=== PATIENT | male | born 1955 | race Caucasian/White ===

== ENCOUNTER 2019-08-09 11:52 | Emergency (ER) | payer MEDICARE, SELFPAY ==
[2019-08-09 11:59] VITALS: BP 194/108; PULSE 94; RESP 16; TEMP 36.6; O2SAT 95
--- NOTE | 2019-08-09 12:07 | XR_ITS ---
WS: [id number] XR chest 1V portable [id number] REASON FOR EXAM: ams FINDINGS: The heart and mediastinum were normal. This tortuous descending thoracic aorta. The lung davison are clear there is no pneumonia, pleural effusion, pulmonary edema, no mass effect. Small nodular densities in the right hilum are seen most likely lymph nodes. XR/XR chest 1V portable [id number] IMPRESSION: Lymphadenopathy in the right hilum. Negative chest for active pathology.
--- NOTE | 2019-08-09 12:07 | CT_ITS ---
WS: [id number] CT HEAD TECHNIQUE: Noncontrast CT of the head obtained from the skullbase to the vertex. CLINICAL INFORMATION: confusion COMPARISON: None. DLP: 1004.[address] scans at [facility] use at least one of these dose optimization techniques: automat ed exposure control; mA and/or kV adjustment per patient size (includes targeted exams where dose is matched to clinical indication); or iterative reconstruction. FINDINGS: No evidence of intracranial hemorrhage or mass effect. Ventricular system and basal cisterns are thakkar nt. Mild small vessel changes with mild parenchymal volume loss. Lobulated Vessel in the right MCA territory is suspicious for a 5 mm MCA trifurcation aneurysm. This can be followed up with CTA. No extra-axial fluid collections. No evidence of mass or mass effect. Normal price-white differentiati on. Mild mucosal thickening in the right frontoethmoidal recess and ethmoid air cells. Mastoid air cells are well aerated. Message left for Rishi Hernandez MD at 08/09/2019 1:[address]/CT head wo con* [id number] IMPRESSION: 1. No evidence of intracranial hemorrhage or mass effect. 2. Mild small vessel changes with mild parenchymal volume loss. 3. Suggestion of a tiny MCA trifurcation aneurysm measuring 5 mm. This can be followed up with CTA 4. Mild mucosal thickening in the paranasal sinuses. 5. No other significant findings.
--- NOTE | 2019-08-09 12:08 | ECG_ITS ---
Measurements Intervals [place] Rate: 88 P: -11 NC: 119 QRS: -42 QRSD: 140 T: 13 QT: 395 QTc: 480 SINUS RHYTHM WITH SHORT NC INTERVAL LEFT AXIS DEVIATION [QRS AXIS < -30] RIGHT BUNDLE BRANCH BLOCK [120+ ms QRS DURATION, UPRIGHT V1, 40+ ms S IN I/ I/aVL/V4/V5/V6] Compared to ECG 06/27/2015 12:28:15 Short NC interval now present Right bundle-branch block now present Electronically Signed On 08-10-2019 12:41:46 CDT by Leigh Alvarez [email or web address]
--- NOTE | 2019-08-09 12:09 | ED_ITS ---
HPI - General Adult General: Chief complaint: General Medical Stated complaint: NOT FEELING RIGHT Time Seen by Provider: 08/09/19 12:01 Source: patient Mode of arrival: ambulatory Limitations: no limitations History of Present Illness: HPI narrative: 64-year-old male states roughly 15 to 30 minutes ago he had short-term memory loss. He states he forgot what he done the day before and what he is doing currently. Patient here now is able answer my questions and knows his name and he is orientated to time and place. Patient does have problems recalling events from earlier today. He has no weakness and no speech abnormality. He is able to walk without any problems. Onset (ago): minute(s) Associated symptoms: Reports confusion; Deny chest pain, dyspnea, headache(s), nausea, rash or vomiting Review of Systems Const: Denies: fever, chills, body aches or change in appetite Eyes: Denies: blurry vision or eye discomfort ENMT: Denies: throat pain or dental pain Card: Denies: chest pain Resp: Denies: shortness of breath GI: Denies: abdominal pain, nausea, vomiting or diarrhea : Denies: painful urination Musc: Denies: neck pain or back pain Skin/Breast: Denies: rash Neuro: Reports: confusion; Denies: headache Psych: Denies: depression [place]/Lymph: Denies: easy bruising All/Imm: Denies: hives PFSH ED PFSH: Social History Smoking and tobacco status: former smoker Physical Exam Const: COMMON NORMALS: no apparent distress, oriented x3, healthy appearing and alert ORIENTATION/CONSCIOUSNESS: Yes oriented to person, Yes oriented to place and Yes oriented to time HENMT: COMMON NORMALS: normocephalic and head/scalp atraumatic HEAD & SCALP: normocephalic and atraumatic Eye: COMMON NORMALS: PERRL and EOMs intact bilaterally PUPIL: Yes PERRL Neck/C-Spine: COMMON NORMALS: full ROM and supple Chest: COMMONS NORMALS: inspection of chest normal and palpation of chest normal Resp: COMMON NORMALS: normal respiratory effort, no retractions, no use of accessory muscles and clear to auscultation bilaterally AUSCULTATION: clear to auscultation bilaterally Cardio: COMMON NORMALS: regular rate, regular rhythm and no murmurs RATE: regular rate RHYTHM: regular rhythm GI: COMMON NORMALS: normal to inspection, nondistended, normoactive bowel sounds, soft to palpation, non-tender and no masses PALPATION: Yes soft Extremity: COMMON NORMALS: normal to inspection and full ROM Neuro: COMMON NORMALS: oriented x3, moves all extremities and no focal motor deficits SENSORIUM/ORIENTATION: Yes alert, Yes oriented to person, Yes oriented to place and Yes oriented to time CRANIAL NERVES: Yes CN normal except as noted SPEECH: speech normal GAIT: Yes normal gait MOTOR EXAM: strength 5/5 throughout and no pronator drift Psych: COMMON NORMALS: mental status grossly normal, thought process normal and cooperative THOUGHT PROCESS: normal thought process Skin: COMMON NORMALS: no rashes or lesions noted and no wounds GENERAL SKIN EXAM: no rashes or lesions noted Course Vital Signs: Vital signs: Vital Signs Temperature 98.4 F 08/09/19 15:48 Pulse Rate 87 08/09/19 15:48 Respiratory Rate 18 08/09/19 15:48 Blood Pressure 176/102 08/09/19 15:48 Pulse Oximetry 96 08/09/19 15:48 MDM - General Adult MDM Narrative: Medical decision making narrative: Patient presents here with acute memory loss that since resolved. Patient is now starting remember what he had done earlier today. He does have a small aneurysm that I did inform about and will have him follow-up with neurosurgery. He has no signs of acute stroke here and his neuro exam is completely normal with an NIH of 0. I did offer admission since he has some memory loss but he refuses and states he feels improved. I informed he has any worsening symptoms he is to return immediately. Patient understands and agrees to this plan. He does have high blood pressure here and has not followed up with a PCP so we will start him on blood pressure meds and he needs to get a primary care doctor as well. Lab Data: Labs: Lab Results 08/09/19 08/09/19 08/09/19 Range/Units 12:11 12:11 12:18 WBC 5.3 (4.0-10.0) 10^3/ uL RBC 4.87 (4.1-5.3) 10^6/u L Hgb 14.9 (11.7-16.6) g/dL Hct 45.6 (42.0-52.0) % MCV 93.6 (80-94) fL MCH 30.6 (28.0-34.0) pg MCHC 32.7 (30.0-36.0) g/dL RDW 14.1 (12.1-15.1) % Plt Count 177 (130-400) 10^3/c mm MPV 10.5 H (7.4-10.4) fL Neut % (Auto) 71.5 % Lymph % (Auto) 21.7 % [place] % (Auto) 5.3 % Eos % (Auto) 0.9 % Baso % (Auto) 0.2 % Neut # (Auto) 3.8 (1.8-7.7) 10^3/u L Lymph # (Auto) 1.2 (0.8-4.8) 10^3/u L [place] # (Auto) 0.3 (0.2-0.9) 10^3/u L Eos # (Auto) 0.1 (0.0-0.8) 10^3/u L Baso # (Auto) 0.0 (0.0-0.1) 10^3/u L Nucleated RBC % (a uto) 0 % Nucleated RBCs # 0.0 /100WBC Sodium (136-145) mmol/L Potassium (3.5-5.1) mmol/L Chloride (98-107) mmol/L Carbon Dioxide (22-29) mmol/L Anion Gap (5-19) BUN (8-23) mg/dL Creatinine (0.7-1.2) mg/dL GFR Calculation (90-130) mL/min Glucose (65-115) mg/dL Calculated Osmolal ity (285-295) mOsm/k g Calcium (8.5-10.5) mg/dL Total Bilirubin (0.15-1.2) mg/dL AST (0-40) U/L ALT (0-41) U/L Alkaline Phosphata se (40-130) IU/L Total Protein (6.6-8.7) g/dL Albumin (3.5-5.2) g/dL Globulin (1.3-4.6) g/dL Urine Color Straw (Yellow) Urine Appearance Clear (CLEAR) Urine pH 6 (5-7) Ur Specific Gravit y 1.010 (1.005-1.030) Urine Protein Neg (Negative) Urine Glucose (UA) Norm (Normal) Urine Ketones Negative (Negative) Urine Blood Neg (Negative) Urine Nitrate Negative (Negative) Urine Bilirubin Neg (NEGATIVE) Urine Urobilinogen Norm (Negative) mg/dL Ur Leukocyte Shana ase Negative (Negative) Urine Opiates Scre en Negative (Negative) ng/mL Ur Barbiturates Sc reen Negative (Negative) ng/mL Ur Phencyclidine S crn Negative (Negative) ng/mL Ur Amphetamines Sc reen Negative (Negative) ng/mL U Benzodiazepines Scrn Negative (Negative) ng/mL Urine Cocaine Scre en Negative (Negative) ng/mL U Marijuana (THC) Screen Negative (Negative) ng/mL Ethyl Alcohol (0-10) mg/dL 08/08/ Range/Units 12:18 WBC (4.0-10.0) 10^3/ uL RBC (4.1-5.3) 10^6/u L Hgb (11.7-16.6) g/dL Hct (42.0-52.0) % MCV (80-94) fL MCH (28.0-34.0) pg MCHC (30.0-36.0) g/dL RDW (12.1-15.1) % Plt Count (130-400) 10^3/c mm MPV (7.4-10.4) fL Neut % (Auto) % Lymph % (Auto) % [place] % (Auto) % Eos % (Auto) % Baso % (Auto) % Neut # (Auto) (1.8-7.7) 10^3/u L Lymph # (Auto) (0.8-4.8) 10^3/u L [place] # (Auto) (0.2-0.9) 10^3/u L Eos # (Auto) (0.0-0.8) 10^3/u L Baso # (Auto) (0.0-0.1) 10^3/u L Nucleated RBC % (a uto) % Nucleated RBCs # /100WBC Sodium 142 (136-145) mmol/L Potassium 3.9 (3.5-5.1) mmol/L Chloride 106 (98-107) mmol/L Carbon Dioxide 24 (22-29) mmol/L Anion Gap 15.9 (5-19) BUN 17 (8-23) mg/dL Creatinine 0.8 (0.7-1.2) mg/dL GFR Calculation 96.7 (90-130) mL/min Glucose 117 H (65-115) mg/dL Calculated Osmolal ity 291 (285-295) mOsm/k g Calcium 9.6 (8.5-10.5) mg/dL Total Bilirubin 0.7 (0.15-1.2) mg/dL AST 16 (0-40) U/L ALT 13 (0-41) U/L Alkaline Phosphata se 71 (40-130) IU/L Total Protein 7.1 (6.6-8.7) g/dL Albumin 4.6 (3.5-5.2) g/dL Globulin 2.5 (1.3-4.6) g/dL Urine Color (Yellow) Urine Appearance (CLEAR) Urine pH (5-7) Ur Specific Gravit y (1.005-1.030) Urine Protein (Negative) Urine Glucose (UA) (Normal) Urine Ketones (Negative) Urine Blood (Negative) Urine Nitrate (Negative) Urine Bilirubin (NEGATIVE) Urine Urobilinogen (Negative) mg/dL Ur Leukocyte Shana ase (Negative) Urine Opiates Scre en (Negative) ng/mL Ur Barbiturates Sc reen (Negative) ng/mL Ur Phencyclidine S crn (Negative) ng/mL Ur Amphetamines Sc reen (Negative) ng/mL U Benzodiazepines Scrn (Negative) ng/mL Urine Cocaine Scre en (Negative) ng/mL U Marijuana (THC) Screen (Negative) ng/mL Ethyl Alcohol < 10 (0-10) mg/dL Imaging Data^: cta head: Radiologist's impression: [place] [address] CT Scan Report Signed Patient: Mikel Vides Unit #: [id number] : 1955 Age/Sex: 64 / M ADM Date: 08/09/19 Loc: ER Room/Bed: Attending Dr: Ordering Provider/Ordering MD: Rishi Hernandez MD Date of Service: 08/09/19 Procedure(s): CT angio headneck* [id number] Accession Number(s): [id number] Report Number: [id number] WS: [id number] CTA HEAD AND NECK TECHNIQUE: Contrast enhanced CTA of the head and neck with coronal and sagittal reformatted images and maximum intensity projection (MIP) images. NASCET criteria utilized. CLINICAL INFORMATION: confusion COMPARISON: CT head earlier today DLP: 2496.[address] scans at [facility] use at least one of these dose optimization techniques: automated exposure control; mA and/or kV adjustment per patient size (includes targeted exams where dose is matched to clinical indication); or iterative reconstruction. FINDINGS: INTRACRANIAL CTA Lobular vessel seen on the recent CT represents a MCA trifurcation aneurysm measuring 4.4 mm. Distal vessels remain patent. Distal vertebral arteries are patent. Basilar artery is patent. Normal vascularity to the DIS[employer]IT[employer] SERVICES OFFICER territory bilaterally. Both ICAs are patent at the skull base. Normal vascularity to the TOYA and MCA territories bilaterally. No evidence of high-grade proximal stenosis. RIGHT: Right common carotid artery is patent. Mild calcified atheromatous disease right carotid bulb extending into the ICA. No significant right ICA stenosis. ICA is patent to the skull base. Tortuous right cervical ICA. LEFT: Left common carotid artery is patent. No significant left ICA stenosis. Left ICA is patent to the skull base. Tortuous left cervical ICA. Multinodular thyroid goiter. Enlarged thyroid. Recommend correlation with thyroid function studies. Lung apices are well aerated. Normal posterior nasopharynx. No evidence of supraglottic or glottic mass. Moderate spondylitic changes cervical spine. Notified Rishi Hernandez MD at 08/09/2019 2:[address]/CT angio headneck* [id number] IMPRESSION: 1. No significant ICA stenosis bilaterally. 2. 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 Distal vessels remain patent. 3. Otherwise unremarkable intracranial CTA. 4. Both cervical ICAs are tortuous in the neck. 5. Heterogeneous enlarged thyroid consistent with goiter. CT Head: Radiologist's impression: [facility] [address] [place] [address] CT Scan Report Signed Patient: Mikel Vides Unit #: [id number] : 1955 Age/Sex: 64 / M ADM Date: 08/09/19 Loc: ER Room/Bed: Attending Dr: Ordering Provider/Ordering MD: Rishi Hernandez MD Date of Service: 08/09/19 Procedure(s): CT head wo con* [id number] Accession Number(s): [id number] Report Number: [id number] WS: [id number] CT HEAD TECHNIQUE: Noncontrast CT of the head obtained from the skullbase to the vertex. CLINICAL INFORMATION: confusion COMPARISON: None. DLP: 1004.[address] scans at [facility] use at least one of these dose optimization techniques: automated exposure control; mA and/or kV adjustment per patient size (includes targeted exams where dose is matched to clinical indication); or iterative reconstruction. FINDINGS: No evidence of intracranial hemorrhage or mass effect. Ventricular system and basal cisterns are patent. Mild small vessel changes with mild parenchymal volume loss. Lobulated Vessel in the right MCA territory is suspicious for a 5 mm MCA trifurcation aneurysm. This can be followed up with CTA. No extra-axial fluid collections. No evidence of mass or mass effect. Normal price-white differentiation. Mild mucosal thickening in the right frontoethmoidal recess and ethmoid air cells. Mastoid air cells are well aerated. Message left for Rishi Hernandez MD at 08/09/2019 1:[address]/CT head wo con* [id number] IMPRESSION: 1. No evidence of intracranial hemorrhage or mass effect. 2. Mild small vessel changes with mild parenchymal volume loss. 3. Suggestion of a tiny MCA trifurcation aneurysm measuring 5 mm. This can be followed up with CTA 4. Mild mucosal thickening in the paranasal sinuses. 5. No other significant findings. EKG Data^: EKG 1: Attestation: I personally reviewed and interpreted this EKG as follows: EKG interpretation date: 08/09/19 EKG interpretation time: 12:22 Interpretation: nsr hr 88 left axis deviated, rbbb no st or t wave abnormalities qrs 140 qtc 441 Computer generated interpretation: Chest X-Ray 08/09/19 12:07 IMPRESSION: Lymphadenopathy in the right hilum. Negative chest for active pathology. Head CT 08/09/19 12:07 IMPRESSION: 1. No evidence of intracranial hemorrhage or mass effect. 2. Mild small vessel changes with mild parenchymal volume loss. 3. Suggestion of a tiny MCA trifurcation aneurysm measuring 5 mm. This can be followed up with CTA 4. Mild mucosal thickening in the paranasal sinuses. 5. No other significant findings. Head/Neck CTA 08/09/19 13:54 IMPRESSION: 1. No significant ICA stenosis bilaterally. 2. 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 Distal vessels remain patent. 3. Otherwise unremarkable intracranial CTA. 4. Both cervical ICAs are tortuous in the neck. 5. Heterogeneous enlarged thyroid consistent with goiter. Discharge Plan Discharge Patient Disposition: Home, Self-Care Clinical Impression: Confusion, Brain aneurysm Hypertension Qualifiers: Hypertension type: unspecified Qualified Code(s): I10 - Essential (primary) hypertension Condition: Stable Prescriptions: New atenolol 25 mg tablet 25 mg PO BID Qty: 60 RF: 0 Discharge Orders: Discharge Order (Routine); Ordered 08/09/19 Ordered By: Rishi Hernandez Referrals: Shree David MD [Physician] - Discharge Diet: Advance as tolerated Discharge Activity: Resume usual activity Patient Instructions: Hypertension (ED) Discharge Date/Time: 08/09/19 15:50 Coding Level of Care Code ED Lint Cleaner for Chg Fwd Exam Comprehensive
[2019-08-09 12:23] LABS: Basophils % 0.2 %; Eosinophils # 0.1 10^3/uL (0.0-0.8); Eosinophils % 0.9 %; Hematocrit 45.6 % (42.0-52.0); Hemoglobin 14.9 g/dL (11.7-16.6); Lymphocytes # 1.2 10^3/uL (0.8-4.8); Lymphocytes % 21.7 %; Mean Corpuscular HGB Conc 32.7 g/dL (30.0-36.0); Mean Corpuscular Hemoglobin 30.6 pg (28.0-34.0); Mean Corpuscular Volume 93.6 fL (80-94); Mean Platelet Volume 10.5 fL (7.4-10.4); Monocytes # 0.3 10^3/uL (0.2-0.9); Monocytes % 5.3 %; Neutrophils # 3.8 10^3/uL (1.8-7.7); Neutrophils % 71.5 %; Nucleated Red Blood Cells % 0 %; Platelet Count 177 10^3/cmm (130-400); Red Blood Count 4.87 10^6/uL (4.1-5.3); Red Cell Distribution Width 14.1 % (12.1-15.1); White Blood Count 5.3 10^3/uL (4.0-10.0)
[2019-08-09 12:39] LABS: Alanine Aminotransferase 13 U/L (0-41); Albumin Level 4.6 g/dL (3.5-5.2); Alkaline Phosphatase 71 IU/L (40-130); Anion Gap 15.9 (5-19); Aspartate Amino Transferase 16 U/L (0-40); Blood Urea Nitrogen 17 mg/dL (8-23); Calcium 9.6 mg/dL (8.5-10.5); Carbon Dioxide 24 mmol/L (22-29); Chloride 106 mmol/L (98-107); Globulin 2.5 g/dL (1.3-4.6); Glomerular Filtration Rate 96.7 mL/min (90-130); Glucose 117 mg/dL (65-115); Osmolality Calculated 291 mOsm/kg (285-295); Potassium 3.9 mmol/L (3.5-5.1); Sodium 142 mmol/L (136-145); Total Bilirubin 0.7 mg/dL (0.15-1.2); Total Protein 7.1 g/dL (6.6-8.7)
[2019-08-09 12:43] LABS: Add Urine Microscopic? NO
[2019-08-09 12:44] LABS: Alcohol Level < 10 mg/dL (0-10)
[2019-08-09 13:00] VITALS: BP 181/122; PULSE 82; RESP 18; O2SAT 97
[2019-08-09 13:06] LABS: Bilirubin Urine Neg (NEGATIVE); Blood Urine Neg (Negative); Glucose Urine UA Norm (Normal); Ketones Urine Negative (Negative); Leukocyte Esterase Urine Negative (Negative); Nitrate Urine Negative (Negative); Protein Urine Neg (Negative); Urine Appearance Clear (CLEAR); Urine Color Straw (Yellow); Urobilinogen Urine Norm (Negative); pH Urine 6 (5-7)
[2019-08-09 13:13] LABS: Amphetamines Screen Urine Negative (Negative); Barbiturates Screen Urine Negative (Negative); Benzodiazepines Screen Urine Negative (Negative); Cocaine Screen Urine Negative (Negative); Opiate Screen Urine Negative (Negative); PCP Screen Urine Negative (Negative); THC Screen Urine Negative (Negative)
--- NOTE | 2019-08-09 13:54 | CT_ITS ---
WS: [id number] CTA HEAD AND NECK TECHNIQUE: Contrast enhanced CTA of the head and neck with coronal and sagittal reformatted images an d maximum intensity projection (MIP) images. NASCET criteria utilized. CLINICAL INFORMATION: confusion COMPARISON: CT head earlier today DLP: 2496.[address] scans at [facility] use at least one of these dose optimization techniques: automat ed exposure control; mA and/or kV adjustment per patient size (includes targeted exams where dose is matched to clinical indication); or iterative reconstruction. FINDINGS: INTRACRANIAL CTA Lobular vessel seen on the recent CT represents a MCA trifurcation aneurysm measuring 4.4 mm. Distal vessels remain patent. Distal vertebral arteries are patent. Basilar artery is patent. Normal vascularity to the CARD[employer]OVASC[employer]GICAL TECH territo ry bilaterally. Both ICAs are patent at the skull base. Normal vascularity to the TOYA and MCA territories bilaterally . No evidence of high-grade proximal stenosis. RIGHT: Right common carotid artery is patent. Mild calcified atheromatous disease right carotid bulb extending into the ICA. No significant right ICA stenosis. ICA is patent to the skull base. Tortuous right cervical ICA. LEFT: Left common carotid artery is patent. No significant left ICA stenosis. Left ICA is patent to t he skull base. Tortuous left cervical ICA. Multinodular thyroid goiter. Enlarged thyroid. Recommend correlation with thyroid function studies. L hiral apices are well aerated. Normal posterior nasopharynx. No evidence of supraglottic or glottic mas s. Moderate spondylitic changes cervical spine. Notified Rishi Hernandez MD at 08/09/2019 2:[address]/CT angio headneck* [id number] IMPRESSION: 1. No significant ICA stenosis bilaterally. 2. 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 Distal vessels remain pat ent. 3. Otherwise unremarkable intracranial CTA. 4. Both cervical ICAs are tortuous in the neck. 5. Heterogeneous enlarged thyroid consistent with goiter.
[2019-08-09 14:00] VITALS: BP 176/101; PULSE 77; RESP 16; O2SAT 95
[2019-08-09] MEDS: hyDRALAzine 20 mg/mL INJ 1 mL 10 MG IVP (14:04)
[2019-08-09] MEDS: iohexol 350 mg/mL 100 mL Btl IV (14:18)
[2019-08-09 15:00] VITALS: BP 164/129; PULSE 81; RESP 16; O2SAT 95
--- NOTE | 2019-08-09 15:22 | DCPLANNER ---
hedis manager had message to schedule a follow up appointment for patient with Dr. David. hedis manager called the office of Dr. David, spoke with Allie. hedis manager gave clinic patients information, was told that patients information would be printed and given to Venkat for review. Clinic will call rn case manager and patient with appointment information.
[2019-08-09] MEDS: atenolol 50 mg Tablet 25 MG PO (15:24)
[2019-08-09 15:48] VITALS: BP 176/102; PULSE 87; RESP 18; TEMP 36.9; O2SAT 96
--- NOTE | 2019-08-18 08:59 | DCPLANNER ---
Patient had an appointment scheduled for 08.14.[address] Butler office. Patient did attend the appointment.
== END 2019-08-09 15:50 | disposition home or self-care (01) ==
PROVIDERS: Emergency Provider Emergency Medicine; PCP Nurse Practitioner Family
DX: R41.0 Disorientation, unspecified (principal); I67.1 Cerebral aneurysm, nonruptured; I10 Essential (primary) hypertension; Z87.891 Personal history of nicotine dependence
CPT/HCPCS: 12345; 36415; 70450; 70496; 70498; 71045; 80053; 80306; 80307; 81003; 85025; 93005; 93010; 96374; 96375; 99284; J0360; Q9967

== ENCOUNTER 2019-08-25 10:16 | Outpatient (CLI) | payer MEDICARE, SELFPAY ==
--- NOTE | 2019-08-25 11:00 | MR_ITS ---
WS: [id number] MRA ANGIOGRAPHY [place] HISTORY: MCA trifurcation aneurysm COMPARISON: 08/09/2019 TECHNIQUE: 3-D MR angiography is performed of the [place]. All images are reviewed including source images. Distal vertebral and basilar arteries are intact with no significant stenosis or plaque. Posterior ce rebral arteries are normal course and caliber. Posterior communicating arteries are both patent. Intracranial carotid arteries are intact. No significant stenosis or narrowing. Again noted is a slig htly lobulated aneurysm involving the RIGHT MCA trifurcation. Aneurysm measures 4.8 mm in diameter an d similar to the prior study. No additional aneurysms identified. No hemorrhage. Posterior cerebral a nd anterior cerebral and the LEFT MCA are negative. Mild mucoperiosteal thickening within the sinuses. MR/MR angio head wo con [id number] IMPRESSION: 1. Stable RIGHT trifurcation MCA aneurysm measuring 4.8 mm. Similar to the nicole or study with no interval change. 2. Mild mucoperiosteal sinus disease.
--- NOTE | 2019-08-25 11:00 | MR_ITS ---
WS: [id number] MR VENOGRAPHY HEAD 3-D noncontrast imaging performed through the cerebral veins. All imaging is reviewed. HISTORY: MCA Trifurcation aneurysm COMPARISON: None available. Excellent demonstration of the dural venous sinuses and cerebral veins. There are no filling defects to suggest acute or chronic thrombus. Very small caliber LEFT transverse sinus and sigmoid sinus. Cor responds to the CT angiogram of 08/09/2019. Superior sagittal sinus is negative for thrombus. Straight sinus sinus and the RIGHT transverse sinus are negative. MR/[place] [id number] IMPRESSION: Normal MR venogram cerebral veins. Small caliber LEFT transverse sinus is a nor mal variant.
== END 2019-08-25 10:17 | disposition home or self-care (01) ==
LOC: RADSHAW 10:18
PROVIDERS: PCP Nurse Practitioner Family; Visit Provider Licensed Practical Nurse
DX: I67.1 Cerebral aneurysm, nonruptured (principal)
CPT/HCPCS: 70544

== ENCOUNTER → 2019-11-16 09:50 | Outpatient (BNVA) | payer MEDICARE, SELFPAY | PROVIDERS: PCP Nurse Practitioner Family; Visit Provider Specialist | DX: M25.552 Pain in left hip (principal) | CPT/HCPCS: 72190; 73502 ==

== ENCOUNTER 2019-12-05 08:26 | Outpatient (CLI) | payer MEDICARE, SELFPAY ==
--- NOTE | 2019-12-05 08:45 | NM_ITS ---
WS: [id number] NUCLEAR MEDICINE BONE SCAN Radiopharmaceutical: 24.7 Tc-99m MDP mCi IV Injection site: Right hand Postinjection imaging delay: 1 hr CLINICAL INFORMATION: hip pain COMPARISON: None. FINDINGS: Bilateral THAs. Osteopenia. Bone lesions: Decreased radiotracer uptake corresponding to the bilateral THAs. Mild periarticular up take about both hips symmetric and normal in appearance. No asymmetric uptake about the left MALIKA to i ndicate loosening. Normal blood flow and blood pool images bilaterally. Degenerative type uptake involving both AC joints and sternoclavicular joints. Degenerative type upta ke involving the lower lumbar spine and both knees. Degenerative type uptake involving the upper left cervical facets. NM/NM bone 3 phase [id number] IMPRESSION: 1. Prior postoperative bilateral THAs. 2. Normal blood flow, blood pool, and delayed bony imaging. No asymmetric upt steve in the left hip to indicate hardware loosening.
== END 2019-12-05 08:27 | disposition home or self-care (01) ==
LOC: NM 08:27
PROVIDERS: PCP Nurse Practitioner Family; Visit Provider Specialist
DX: M25.551 Pain in right hip (principal); M25.552 Pain in left hip; Z96.643 Presence of artificial hip joint, bilateral
CPT/HCPCS: 78315; A9561

== ENCOUNTER → 2020-03-14 14:38 | Outpatient (BNVA) | payer MEDICARE, SELFPAY | PROVIDERS: PCP Nurse Practitioner Family; Visit Provider Specialist | DX: Z96.643 Presence of artificial hip joint, bilateral (principal) | CPT/HCPCS: 73522; 73523 ==

== ENCOUNTER 2020-09-18 07:56 | Outpatient (CLI) | payer MEDICARE, SELFPAY ==
--- NOTE | 2020-09-18 07:58 | MR_ITS ---
WS: [id number] MR VENOGRAPHY HEAD 3-D noncontrast imaging performed through the cerebral veins. All imaging is reviewed. HISTORY: brain aneurysm COMPARISON: 08/25/2019 Excellent demonstration of the dural venous sinuses and cerebral veins. There are no filling defects to suggest acute or chronic thrombus. Small caliber LEFT transverse sinus. Similar to the prior study and is consistent with a normal variant. No filling defects are evident. Normal superior sagittal si nus and straight sinus. MR/[place] [id number] IMPRESSION: No change in appearance of the MR venography since 08/25/2019. No thrombus or occ lusions are identified.
--- NOTE | 2020-09-18 07:58 | MR_ITS ---
WS: [id number] MRA ANGIOGRAPHY [place] HISTORY: brain aneurysm COMPARISON: 08/25/2019 TECHNIQUE: 3-D MR angiography is performed of the [place]. All images are reviewed including source images. Distal vertebral and basilar arteries are intact with no significant stenosis or plaque. Posterior ce rebral arteries are normal course and caliber. Posterior communicating arteries are both patent. Intracranial carotid arteries are normal. No occlusions or aneurysm. Again noted is the 4 mm aneurysm involving the RIGHT MCA trifurcation which was previously described. No increase in size and no aubrie cent hemorrhage or wall irregularity. No new or additional aneurysms. Anterior communicating artery a nd the posterior communicating artery are free of the aneurysms. MR/MR angio head wo con [id number] IMPRESSION: 1. Stable 4 mm RIGHT trifurcation MCA aneurysm. 2. No additional aneurysms identified.
== END 2020-09-18 07:57 | disposition home or self-care (01) ==
LOC: RADSHAW 07:57
PROVIDERS: PCP Nurse Practitioner Family; Visit Provider Specialist
DX: I67.1 Cerebral aneurysm, nonruptured (principal)
CPT/HCPCS: 70544

== ENCOUNTER → 2021-03-17 10:11 | Outpatient (BNVA) | payer MEDICARE, SELFPAY | PROVIDERS: PCP Nurse Practitioner Family; Visit Provider Specialist | DX: Z96.641 Presence of right artificial hip joint (principal) | CPT/HCPCS: 73502; 73523 ==

== ENCOUNTER → 2021-03-25 09:57 | Outpatient (BNVA) | payer MEDICARE, SELFPAY | PROVIDERS: PCP Nurse Practitioner Family; Referring Provider Family Medicine; Visit Provider Specialist | DX: I67.1 Cerebral aneurysm, nonruptured (principal); G45.4 Transient global amnesia; Z87.891 Personal history of nicotine dependence | CPT/HCPCS: 99204 ==

== ENCOUNTER → 2021-09-23 09:03 | Outpatient (BNVA) | payer MEDICARE, SELFPAY | PROVIDERS: PCP Nurse Practitioner Family; Visit Provider Specialist | DX: I67.1 Cerebral aneurysm, nonruptured (principal); Z96.641 Presence of right artificial hip joint; Z87.891 Personal history of nicotine dependence | CPT/HCPCS: 99213 ==

== ENCOUNTER 2021-12-10 11:22 | Outpatient (CLI) | payer MEDICARE, SELFPAY ==
--- NOTE | 2021-12-10 11:45 | MR_ITS ---
WS: [id number] ANGIOGRAPHY [place] HISTORY: I67.1 - Cerebral aneurysm, nonruptured COMPARISON: 09/18/2020 TECHNIQUE: 3-D MR angiography is performed of the [place]. All images are reviewed including source images. Distal vertebral and basilar arteries are intact with no significant stenosis or plaque. Posterior ce rebral arteries are normal course and caliber. Posterior communicating arteries are both patent. Very small caliber LEFT posterior communicating artery. Intracranial carotid arteries are both patent. No significant occlusion or atherosclerotic disease. M iddle cerebral arteries are patent. 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 Aneurysm projects into the sylvian fissure. There is a very small area of low signa l which may be a partial thrombus in the aneurysm. There is no progression of this aneurysm and no ne w aneurysms are identified. Anterior communicating artery is intact. No aneurysm. Anterior cerebral a rteries are normal. MR/MR angio head wo con [id number] IMPRESSION: 1. 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 2. No new aneurysm identified.
== END 2021-12-10 11:23 | disposition home or self-care (01) ==
LOC: RAD 11:22
PROVIDERS: PCP Nurse Practitioner Family; Visit Provider Specialist
DX: I67.1 Cerebral aneurysm, nonruptured (principal)
CPT/HCPCS: 70544

== ENCOUNTER 2023-11-21 00:14 | Emergency (ER) | payer MEDICARE, SELFPAY ==
[2023-11-21 00:21] VITALS: BP 179/83; PULSE 86; RESP 20; TEMP 36.5; O2SAT 96
--- NOTE | 2023-11-21 00:24 | ED_ITS ---
HPI - Animal Bite 2 General: Chief Complaint: Animal Bite Stated Complaint: Animal bite on right foot Time Seen by Provider: 11/21/23 00:21 Source: patient Mode of arrival: ambulatory Limitations: no limitations History of Present Illness: 68-year-old male states he is bit on his right heel by a copperhead roughly an hour ago. States he has some pain in that foot minimal swelling. Denies any other injuries. He rates the pain a 5 out of 10 currently Associated symptoms: Deny chills, fever(s) or headache(s) Review of Systems 2 Const: Denies: fever(s), chills, body aches or change in appetite ENMT: Denies: throat pain or dental pain Card: Denies: chest pain Resp: Denies: dyspnea GI: Denies: abdominal pain, nausea, vomiting or diarrhea Musc: Reports: extremity pain; Denies: neck pain or back pain Skin/Breast: Denies: rash Neuro: Denies: headache(s) PFSH ED 2 PFSH: Medical History (Updated 11/21/23 @ 02:17 by Rishi Hernandez MD) Middle cerebral artery aneurysm Brain aneurysm Hypertension Surgical History History of total left hip arthroplasty Left Total Hip 2001 in [place], [place] History of total right hip arthroplasty Right Total Hip 07/01/2015, Dr. Chavez, Right Hip DJD with Contracture: Components utilized include a trabecular metal shell continue well with cluster holes size 56 mm outer diameter with a KK liner, a Continuum Trilogy vitamin E cross-linked polyethylene neutral liner 36 mm inner diameter by KK, a dome hole plug, a size 16 standard body extended neck offset femoral stem by remodeled taper, and a Biolox delta ceramic femoral head 36+3.5 felt taper (05/06). History of hip replacement, total (~2015) 2x 2015 Family History Other No pertinent family history Social History Smoking and tobacco/nicotine status: former use of tobacco/nicotine (quit 4 years ago) Alcohol intake: never Substance/Drug Use: never Household members: spouse Marital status: Current occupational status: retired Physical Exam 2 Const: COMMON NORMALS: no acute distress, patient oriented x3 and healthy appearing HENMT: COMMON NORMALS: normocephalic and atraumatic HEAD & SCALP: n ormocephalic and atraumatic Neck/C-Spine: COMMON NORMALS: full ROM and supple Chest: COMMONS NORMALS: normal inspection of the chest Resp: COMMON NORMALS: normal respiratory effort Cardio: COMMON NORMALS: regular rate RATE: regular rate Extremity: COMMON NORMALS: full ROM NARRATIVE EXTREMITY EXAM: 2 small puncture wounds to right heel sl ight swelling at the site Neuro: COMMON NORMALS: patient oriented x3, moves all extremities and no focal motor deficits Psych: COMMON NORMALS: mental status grossly normal, Normal thought process present and cooperative THOUGHT PROCESS: Normal thought process present Skin: COMMON NORMALS: no rashes or lesions noted and no wounds GENERAL SKIN EXAM: no rashes or lesions noted Course 2 Vital Signs: Vital signs: Vital Signs Temperature 97.7 F 11/21/23 00:21 Pulse Rate 86 11/21/23 00:21 Respiratory Rate 18 11/21/23 00:44 Blood Pressure 179/83 11/21/23 00:21 Pulse Oximetry 96 11/21/23 00:21 Oxygen Delivery Me thod Room Air 11/21/23 00:21 MDM - Animal Bite Medical Decision Making Patient presents here with standby he had minimal swelling at the bite site was observed here does not require antivenom he is stable for discharge home will prescribe pain medicine he is follow-up with PCP and return if worsening Medical Records I reviewed the patient's medical records. Lab Data I reviewed the patient's lab results. 11/21/23 00:32 11/21/23 00:32 Laboratory Results WBC 3.94 10^3/uL (3.29-11.43) 11/21/23 00:32 RBC 4.48 10^6/uL (3.85-5.65) 11/21/23 00:32 Hgb 13.70 g/dL (11.27-16.99) 11/21/23 00:32 Hct 42.0 % (37-53) 11/21/23 00:32 MCV 93.8 fl (82-101) 11/21/23 00:32 MCH 30.6 pg (27-33) 11/21/23 00:32 MCHC 32.6 g/dL (30-55) 11/21/23 00:32 RDW 14.5 % (12.1-15.1) 11/21/23 00:32 Plt Count 180 10^3/cmm (157-399) 11/21/23 00:32 MPV 10.1 fL (7.4-10.4) 11/21/23 00:32 Neut % (Auto) 63.5 % 11/21/23 00:32 Lymph % (Auto) 25.1 % 11/21/23 00:32 [place] % (Auto) 9.1 % 11/21/23 00:32 Eos % (Auto) 1.5 % 11/21/23 00:32 Baso % (Auto) 0.3 % 11/21/23 00:32 Neut # (Auto) 2.50 10^3/uL (1.8-7.7) 11/21/23 00:32 Lymph # (Auto) 1.0 10^3/uL (0.8-4.8) 11/21/23 00:32 [place] # (Auto) 0.4 10^3/uL (0.2-0.9) 11/21/23 00:32 Eos # (Auto) 0.1 10^3/uL (0.0-0.8) 11/21/23 00:32 Baso # (Auto) 0.0 10^3/uL (0.0-0.1) 11/21/23 00:32 Nucleated RBC % (auto) 0 % 11/21/23 00:32 Nucleated RBCs # 0.0 /100WBC 11/21/23 00:32 PT 12.70 SECONDS (12.1-14.9) 11/21/23 00:32 INR 0.93 (0.8-1.2) 11/21/23 00:32 Sodium 141 mmol/L (136-145) 11/21/23 00:32 Potassium 4.1 mmol/L (3.5-5.1) 11/21/23 00:32 Chloride 104 mmol/L (98-107) 11/21/23 00:32 Carbon Dioxide 25 mmol/L (22-29) 11/21/23 00:32 Anion Gap 16.1 (5-19) 11/21/23 00:32 BUN 22 mg/dL (8-23) 11/21/23 00:32 Creatinine 1.0 mg/dL (0.7-1.2) 11/21/23 00:32 GFR Calculation 73.9 mL/min (90-130) L 11/21/23 00:32 Glucose 112 mg/dL (65-115) 11/21/23 00:32 Calculated Osmolality 296 mOsm/kg (285-295) H 11/21/23 00:32 Calcium 9.5 mg/dL (8.5-10.5) 11/21/23 00:32 Total Bilirubin 0.5 mg/dL (0.15-1.2) 11/21/23 00:32 AST 18 U/L (0-40) 11/21/23 00:32 ALT 18 U/L (0-41) 11/21/23 00:32 Alkaline Phosphatase 85 U/L (40-130) 11/21/23 00:32 Total Protein 7.2 g/dL (6.6-8.7) 11/21/23 00:32 Albumin 4.2 g/dL (3.5-5.2) 11/21/23 00:32 Globulin 3.0 g/dL (1.3-4.6) 11/21/23 00:32 No radiology studies performed this visit Discharge Plan Discharge Patient Disposition: Home Clinical Impression: Snake bite Condition: Stable Prescriptions: New hydrocodone-acetaminophen 5-325 mg tablet 1 tab PO Q6H PRN (Reason: pain) Qty: 14 0RF No Action amoxicillin-pot clavulanate 875-125 mg tablet 1 tab PO BID 7 Days Qty: 14 0RF fluticasone propionate [Flonase Allergy Relief] 50 mcg/actuation spray,suspension 2 spray intranasal DAILY PRN (Reason: nasal congestion) Qty: 16 0RF Rx Instructions: administer into each nostril Discharge Orders: Discharge ED (Routine); Ordered 11/21/23 Ordered By: Rishi Hernandez Referrals: Farhat Garcia NP [Primary Care Provider] - 4-7 days Discharge Diet: Advance as tolerated Discharge Activity: Resume usual activity Patient Instructions: Snake Bite (ED) Coding Level of Care Code ED Funnel Coater for Shante Askew
[2023-11-21 00:41] LABS: Basophils % 0.3 %; Eosinophils # 0.1 10^3/uL (0.0-0.8); Eosinophils % 1.5 %; Lymphocytes % 25.1 %; Mean Corpuscular HGB Conc 32.6 g/dL (30-55); Mean Corpuscular Hemoglobin 30.6 pg (27-33); Mean Corpuscular Volume 93.8 fl (82-101); Mean Platelet Volume 10.1 fL (7.4-10.4); Monocytes # 0.4 10^3/uL (0.2-0.9); Monocytes % 9.1 %; Neutrophils % 63.5 %; Nucleated Red Blood Cells % 0 %; Platelet Count 180 10^3/cmm (157-399); Red Blood Count 4.48 10^6/uL (3.85-5.65); Red Cell Distribution Width 14.5 % (12.1-15.1); White Blood Count 3.94 10^3/uL (3.29-11.43)
[2023-11-21] MEDS: ondansetron 2 mg/ML SDV 2 mL 4 MG IVP (00:43)
[2023-11-21 00:44] VITALS: RESP 18
[2023-11-21] MEDS: morphine 4 mg/mL SDV 1 mL IVP (00:44)
[2023-11-21] MEDS: tetanus-dipt-pertussis 0.5 mL SDV IM (00:44)
[2023-11-21 00:54] LABS: INR 0.93 (0.8-1.2)
[2023-11-21 00:59] LABS: Alanine Aminotransferase 18 U/L (0-41); Albumin Level 4.2 g/dL (3.5-5.2); Alkaline Phosphatase 85 U/L (40-130); Anion Gap 16.1 (5-19); Aspartate Amino Transferase 18 U/L (0-40); Blood Urea Nitrogen 22 mg/dL (8-23); Calcium 9.5 mg/dL (8.5-10.5); Carbon Dioxide 25 mmol/L (22-29); Chloride 104 mmol/L (98-107); Creatinine Clr Calc Pharmacy 85.7632; Glomerular Filtration Rate 73.9 mL/min (90-130); Glucose 112 mg/dL (65-115); Osmolality Calculated 296 mOsm/kg (285-295); Potassium 4.1 mmol/L (3.5-5.1); Sodium 141 mmol/L (136-145); Total Bilirubin 0.5 mg/dL (0.15-1.2); Total Protein 7.2 g/dL (6.6-8.7)
[2023-11-21] MEDS: HYDROcodone-acetaminophen 5-325 mg Tablet 1 TAB PO (02:22)
--- NOTE | 2023-11-21 02:28 | PC.NURSE ---
Pt. has no large amount of swelling in right foot after 2 hours.
[2023-11-21 02:34] VITALS: BP 177/88; PULSE 88; RESP 20; O2SAT 96
== END 2023-11-21 02:34 | disposition home or self-care (01) ==
PROVIDERS: Emergency Provider Emergency Medicine; PCP Nurse Practitioner Family
DX: T63.091A Toxic effect of venom of other snake, accidental (unintentional), initial encounter (principal); I10 Essential (primary) hypertension; Z87.891 Personal history of nicotine dependence; Z23 Encounter for immunization
CPT/HCPCS: 80053; 85025; 85610; 90471; 90715; 96374; 96375; 99284; J2270; J2405

== ENCOUNTER 2023-11-27 01:24 | Emergency (ER) | payer MEDICARE, SELFPAY ==
[2023-11-27 01:33] VITALS: BP 177/75; PULSE 85; RESP 18; TEMP 36.4; O2SAT 95; BMI 39.5
--- NOTE | 2023-11-27 01:35 | CTR_ITS ---
PROCEDURE INFORMATION: Exam: CT Abdomen And Pelvis Without Contrast Exam date and time: 11/27/2023 1:42 AM Age: 68 years old Clinical indication: Abdominal pain; Prior surgery; Surgery date: 6+ months; Surgery type: Bilateral radha; Patient HX: C/O left flank pain. ; Additional info: Left flank pain, HX of stones TECHNIQUE: Imaging protocol: Computed tomography of the abdomen and pelvis without contrast. Radiation optimization: All CT scans at this facility use at least one of these dose optimization techniques: automated exposure control; mA and/or kV adjustment per patient size (includes targeted exams where dose is matched to clinical indication); or iterative reconstruction. COMPARISON: CT kidney stone [id number] 05/16/2018 5:53 AM RADIATION DOSE METRICS: Total DLP (mGy-cm): 1142.11 FINDINGS: Liver: There are multiple hypoattenuation lesion seen within the liver, the largest is seen left hepatic lobe today measuring 23.6 mm in its greatest dimension. Previously this lesion measured 15.8 mm. Gallbladder and biliary ducts: Normal. No calcified stones. No ductal dilation. Pancreas: Normal. No ductal dilation. Spleen: Normal. No splenomegaly. Adrenal glands: Normal. No mass. Kidneys and ureters: There are bilateral nonobstructing renal calculi present. The largest on the right measures 10.4 mm, the largest on the left measures 12 mm. There are bilateral cystic masses present within the kidneys. The largest cyst on the left today measures 21 mm in diameter. Previously, it measured 15 mm. The largest cyst on the right measures 22 mm and is located on the lower pole. Previously, this lesion measured 13 mm. There is mild hydronephrosis and hydroureter seen on the left. There is a partially obstructing 4 mm mid left ureteral calculus near the level of the left common iliac artery. Stomach and bowel: Unremarkable. No obstruction. No mucosal thickening. Appendix: The appendix visualized and is normal in configuration. Intraperitoneal space: Unremarkable. No free air. No significant fluid collection. Vasculature: Unremarkable. No abdominal aortic aneurysm. Lymph nodes: Unremarkable. No enlarged lymph nodes. Urinary bladder: Unremarkable as visualized. Reproductive: Unremarkable as visualized. Bones/joints: Status post bilateral bipolar hip replacement. There is a diffuse loss of disc height and multilevel vacuum disc phenomenon seen in the thoracolumbar spine. Soft tissues: Stranding opacities seen in the perinephric fascia bilaterally likely representing chronic scarring. CT/CT kidney stone [id number] IMPRESSION: 1. Partially obstructing 4 mm mid left ureteral calculus. 2. Bilateral simple appearing renal cysts, the largest is seen on the right measuring 22 mm. Renal cysts have increased slightly in size compared with 05/16/2018. No further workup is needed. 3. Bilateral nonobstructing renal calculi, the largest is present on the left measuring 12 mm. 4. There are multiple hypoattenuation lesion seen within liver, the largest seen in the left hepatic lobe measuring 23.6 mm in its greatest dimension. Previously, this lesion measured 15.8 mm. Further evaluation with non-emergent liver MRI is recommended. (Reference: Liang) COMMENTS: Consistent with the [employer]'s Incidental Findings Committee white paper (J Am Tejas Radiol 2018): Any incidental renal lesion less than 1 cm or classified as too small to characterize, or any incidental cystic renal lesion characterized as simple-appearing, is likely benign. No follow-up imaging is recommended for these lesions per consensus recommendations based on imaging criteria. REFERENCES: Liang LOPEZ, et al. Management of Incidental Liver Lesions on CT: A White Paper of the ACR Incidental Findings Committee. J Am Tejas Radiol. 2017;14(11):2161-4871.
--- NOTE | 2023-11-27 01:40 | ED_ITS ---
HPI - Male Genitourinary 2 General: Chief complaint: Urogenital-Male Stated complaint: believes kidney stones Time Seen by Provider: 11/27/23 01:35 History of Present Illness: Patient presents to the ER with left-sided flank pain that radiates into his groin. Patient thinks he has a kidney stone. This been going off and on for about the last 2 days but increasing in intensity and severity and frequency. Patient has a history of multiple kidney stones over the past 30 years. Patient denies any nausea vomiting fevers chills diarrhea or constipation Review of Systems 2 General: Reports: 10 or more systems reviewed and unremarkable except in HPI and below PFSH ED 2 PFSH: Medical History (Updated 11/27/23 @ 02:51 by Flaquito Shoemaker DO) Middle cerebral artery aneurysm Brain aneurysm Hypertension Surgical History History of total left hip arthroplasty Left Total Hip 2001 in [place], [place] History of total right hip arthroplasty Right Total Hip 07/01/2015, Dr. Chavez, Right Hip DJD with Contracture: Components utilized include a trabecular metal shell continue well with cluster holes size 56 mm outer diameter with a KK liner, a Continuum Trilogy vitamin E cross-linked polyethylene neutral liner 36 mm inner diameter by KK, a dome hole plug, a size 16 standard body extended neck offset femoral stem by remodeled taper, and a Biolox delta ceramic femoral head 36+3.5 felt taper (05/06). History of hip replacement, total (~2015) 2x 2015 Family History Other No pertinent family history Social History Smoking and tobacco/nicotine status: former use of tobacco/nicotine (quit 4 years ago) Alcohol intake: never Substance/Drug Use: never Household members: spouse Marital status: Current occupational status: retired Physical Exam 2 Const: COMMON NORMALS: no acute distress, average body habitus, patient oriented x3, no limitations, healthy appearing, alert and well nourished HENMT: COMMON NORMALS: normocephalic, atraumatic, hearing grossly normal bilaterally, external ears normal, Normal external nose present and moist oral mucous membranes HEAD & SCALP: normocephalic and atraumatic NOSE: Normal external nose present EXTERNAL EAR: Yes external ears normal Neck/C-Spine: COMMON NORMALS: no JVD Chest: COMMONS NORMALS: normal inspection of the chest and normal palpation of entire chest wall Resp: COMMON NORMALS: normal respiratory effort, No retractions, No use of accessory muscles and clear to auscultation bilaterally AUSCULTATION: clear to auscultation bilaterally Cardio: COMMON NORMALS: no JVD, regular rate, regular rhythm, S1 normal heart sound present, S2 normal heart sound present, No gallops present (Cardio), No clicks present (Cardio), No murmurs present (Cardio) and No rub (Cardio) R ATE: regular rate RHYTHM: regular rhythm HEART SOUNDS: S1 normal heart sound present and S2 normal heart sound present GI: COMMON NORMALS: Normal to inspection, nondistended, normoactive bowel sounds present, Soft to palpation, non-tender, No hepatosplenomegaly present and no masses PALPATION: Yes Soft to palpation and Yes No hepatosplenomegaly present Neuro: COMMON NORMALS: patient oriented x3 SENSORIUM/ORIENTATION: Yes alert Course 2 Vital Signs: Vital signs: Vital Signs Temperature 97.6 F 11/27/23 01:33 Pulse Rate 75 11/27/23 02:24 Respiratory Rate 15 11/27/23 02:24 Blood Pressure 173/80 11/27/23 02:24 Pulse Oximetry 96 11/27/23 02:24 Oxygen Delivery Me thod Room Air 11/27/23 02:24 MDM - Male Medical Decision Making While patient was in CAT scan he said he felt the probable stone move and now he is pain-free. Lab work was unremarkable, CT scan did show a partial obstructing 4 mm stone left ureteral mid, also other stones present in both kidneys. Differential Diagnosis Unlikely urinary tract infection, priapism, urethritis, epididymitis, genital herpes simplex, prostatitis, acute retention of urine or inguinal hernia Medical Records I reviewed the patient's medical records. Lab Data I reviewed the patient's lab results. 11/27/23 01:38 11/27/23 01:38 Radiology Impressions Abdomen/Pelvis CT 11/27/23 01:35 IMPRESSION: 1. Partially obstructing 4 mm mid left ureteral calculus. 2. Bilateral simple appearing renal cysts, the largest is seen on the right measuring 22 mm. Renal cysts have increased slightly in size compared with 05/16/2018. No further workup is needed. 3. Bilateral nonobstructing renal calculi, the largest is present on the left measuring 12 mm. 4. There are multiple hypoattenuation lesion seen within liver, the largest seen in the left hepatic lobe measuring 23.6 mm in its greatest dimension. Previously, this lesion measured 15.8 mm. Further evaluation with non-emergent liver MRI is recommended. (Reference: Liang) COMMENTS: Consistent with the [employer]'s Incidental Findings Committee white paper (J Am Tejas Radiol 2018): Any incidental renal lesion less than 1 cm or classified as too small to characterize, or any incidental cystic renal lesion characterized as simple-appearing, is likely benign. No follow-up imaging is recommended for these lesions per consensus recommendations based on imaging criteria. REFERENCES: Liang LOPEZ, et al. Management of Incidental Liver Lesions on CT: A White Paper of the ACR Incidental Findings Committee. J Am Tejas Radiol. 2017;14(11):2939-5103. Laboratory Results WBC 7.27 10^3/uL (3.29-11.43) 11/27/23 01:38 RBC 4.70 10^6/uL (3.85-5.65) 11/27/23 01:38 Hgb 14.30 g/dL (11.27-16.99) 11/27/23 01:38 Hct 44.9 % (37-53) 11/27/23 01:38 MCV 95.5 fl (82-101) 11/27/23 01:38 MCH 30.4 pg (27-33) 11/27/23 01:38 MCHC 31.8 g/dL (30-55) 11/27/23 01:38 RDW 14.0 % (12.1-15.1) 11/27/23 01:38 Plt Count 187 10^3/cmm (157-399) 11/27/23 01:38 MPV 10.4 fL (7.4-10.4) 11/27/23 01:38 Neut % (Auto) 86.6 % 11/27/23 01:38 Lymph % (Auto) 7.4 % 11/27/23 01:38 [place] % (Auto) 4.7 % 11/27/23 01:38 Eos % (Auto) 0.7 % 11/27/23 01:38 Baso % (Auto) 0.3 % 11/27/23 01:38 Neut # (Auto) 6.30 10^3/uL (1.8-7.7) 11/27/23 01:38 Lymph # (Auto) 0.5 10^3/uL (0.8-4.8) L 11/27/23 01:38 [place] # (Auto) 0.3 10^3/uL (0.2-0.9) 11/27/23 01:38 Eos # (Auto) 0.1 10^3/uL (0.0-0.8) 11/27/23 01:38 Baso # (Auto) 0.0 10^3/uL (0.0-0.1) 11/27/23 01:38 Nucleated RBC % (auto) 0 % 11/27/23 01:38 Nucleated RBCs # 0.0 /100WBC 11/27/23 01:38 Sodium 140 mmol/L (136-145) 11/27/23 01:38 Potassium 4.1 mmol/L (3.5-5.1) 11/27/23 01:38 Chloride 104 mmol/L (98-107) 11/27/23 01:38 Carbon Dioxide 24 mmol/L (22-29) 11/27/23 01:38 Anion Gap 16.1 (5-19) 11/27/23 01:38 BUN 23 mg/dL (8-23) 11/27/23 01:38 Creatinine 1.0 mg/dL (0.7-1.2) 11/27/23 01:38 GFR Calculation 73.9 mL/min (90-130) L 11/27/23 01:38 Glucose 150 mg/dL (65-115) H 11/27/23 01:38 Calculated Osmolality 297 mOsm/kg (285-295) H 11/27/23 01:38 Calcium 8.9 mg/dL (8.5-10.5) 11/27/23 01:38 Total Bilirubin 0.6 mg/dL (0.15-1.2) 11/27/23 01:38 AST 17 U/L (0-40) 11/27/23 01:38 ALT 13 U/L (0-41) 11/27/23 01:38 Alkaline Phosphatase 86 U/L (40-130) 11/27/23 01:38 Total Protein 7.9 g/dL (6.6-8.7) 11/27/23 01:38 Albumin 4.4 g/dL (3.5-5.2) 11/27/23 01:38 Globulin 3.5 g/dL (1.3-4.6) 11/27/23 01:38 Urine Color Yellow (Yellow) 11/27/23 02:22 Urine Appearance Clear (CLEAR) 11/27/23 02:22 Urine pH 5 (5-7) 11/27/23 02:22 Ur Specific [place] 1.020 (1.005-1.030) 11/27/23 02:22 Urine Protein Neg (Negative) 11/27/23 02:22 Urine Glucose (UA) Norm (Normal) 11/27/23 02:22 Urine Ketones Negative (Negative) 11/27/23 02:22 Urine Blood 3+ (Negative) H 11/27/23 02:22 Urine Nitrate Negative (Negative) 11/27/23 02:22 Urine Bilirubin Neg (Negative) 11/27/23 02:22 Urine Urobilinogen Neg mg/dL (Negative) 11/27/23 02:22 Ur Leukocyte Esterase Negative (Negative) 11/27/23 02:22 All radiology interpretation(s) finalized by discharge Discharge Plan Discharge Patient Disposition: Home Clinical Impression: Bilateral kidney stones, Calculus of left ureter Condition: Stable Prescriptions: No Action amoxicillin-pot clavulanate 875-125 mg tablet 1 tab PO BID 7 Days Qty: 14 0RF fluticasone propionate [Flonase Allergy Relief] 50 mcg/actuation spray,suspension 2 spray intranasal DAILY PRN (Reason: nasal congestion) Qty: 16 0RF Rx Instructions: administer into each nostril hydrocodone-acetaminophen 5-325 mg tablet 1 tab PO Q6H PRN (Reason: pain) Qty: 14 0RF Discharge Orders: Discharge ED (Routine); Ordered 11/27/23 Ordered By: Flaquito Shoemaker Referrals: Farhat Garcia NP [Primary Care Provider] - 1 week Patient Instructions: Kidney Stones (ED) Activity Restrictions/Additional Instructions: Your CT scan showed bilateral kidney stones in the kidney and a left ureteral stone which is the one causing your pain. It is 4 mm so it should pass without difficulty. Please follow-up with your family practice physician and/or urologist within next 7 to 10 days for further evaluation and treatment. If you start developing more intense pain, fever or chills etc. please feel free to return to the ER. Coding Level of Care Code ED Senior Marketing Engineer for Shante Askew
[2023-11-27 01:44] LABS: Basophils % 0.3 %; Eosinophils # 0.1 10^3/uL (0.0-0.8); Eosinophils % 0.7 %; Hematocrit 44.9 % (37-53); Lymphocytes # 0.5 10^3/uL (0.8-4.8); Lymphocytes % 7.4 %; Mean Corpuscular HGB Conc 31.8 g/dL (30-55); Mean Corpuscular Hemoglobin 30.4 pg (27-33); Mean Corpuscular Volume 95.5 fl (82-101); Mean Platelet Volume 10.4 fL (7.4-10.4); Monocytes # 0.3 10^3/uL (0.2-0.9); Monocytes % 4.7 %; Neutrophils % 86.6 %; Nucleated Red Blood Cells % 0 %; Platelet Count 187 10^3/cmm (157-399); White Blood Count 7.27 10^3/uL (3.29-11.43)
[2023-11-27] MEDS: sodium chloride 0.9% 1,000 ML 999 ML IV (01:49)
[2023-11-27] MEDS: ketorolac 30 mg/mL INJ IVP (01:51)
[2023-11-27 02:00] LABS: Alanine Aminotransferase 13 U/L (0-41); Albumin Level 4.4 g/dL (3.5-5.2); Alkaline Phosphatase 86 U/L (40-130); Anion Gap 16.1 (5-19); Aspartate Amino Transferase 17 U/L (0-40); Blood Urea Nitrogen 23 mg/dL (8-23); Calcium 8.9 mg/dL (8.5-10.5); Carbon Dioxide 24 mmol/L (22-29); Chloride 104 mmol/L (98-107); Creatinine Clr Calc Pharmacy 85.7632; Globulin 3.5 g/dL (1.3-4.6); Glomerular Filtration Rate 73.9 mL/min (90-130); Glucose 150 mg/dL (65-115); Osmolality Calculated 297 mOsm/kg (285-295); Potassium 4.1 mmol/L (3.5-5.1); Sodium 140 mmol/L (136-145); Total Bilirubin 0.6 mg/dL (0.15-1.2); Total Protein 7.9 g/dL (6.6-8.7)
[2023-11-27 02:24] VITALS: BP 173/80; PULSE 75; RESP 15; O2SAT 96
[2023-11-27 02:50] LABS: Add Urine Microscopic? YES; Bacteria Urine TRACE /hpf; Bilirubin Urine Neg (Negative); Blood Urine 3+ (Negative); Glucose Urine UA Norm (Normal); Ketones Urine Negative (Negative); Leukocyte Esterase Urine Negative (Negative); Nitrate Urine Negative (Negative); Protein Urine Neg (Negative); Squamous Epithelial Cell Urine 0-4 /hpf (0-5); Urine Appearance Clear (CLEAR); Urine Color Yellow (Yellow); Urobilinogen Urine Neg (Negative); WBC Urine 0-4 /hpf (0-5); pH Urine 5 (5-7)
[2023-11-27 03:01] VITALS: BP 154/74; PULSE 72; O2SAT 97
== END 2023-11-27 03:03 | disposition home or self-care (01) ==
PROVIDERS: Emergency Provider Emergency Medicine; PCP Nurse Practitioner Family
DX: N20.2 Calculus of kidney with calculus of ureter (principal); I10 Essential (primary) hypertension; Z87.891 Personal history of nicotine dependence
CPT/HCPCS: 74176; 80053; 81001; 85025; 96374; 99285; J1885; J7030

== ENCOUNTER 2023-12-02 10:34 | Outpatient (CLI) | payer MEDICARE, SELFPAY ==
--- NOTE | 2023-12-02 10:50 | XRR_ITS ---
PROCEDURE INFORMATION: Exam: XR Right Knee Exam date and time: 12/02/2023 11:04 AM Age: 68 years old Clinical indication: Injury or trauma; Fall; Blunt trauma; Right; Injury details: 1 month ago fell off of curb and hit knee on the side; Additional info: R knee pain TECHNIQUE: Imaging protocol: Radiologic exam of the right knee. Views: 3 views. COMPARISON: No relevant prior studies available. FINDINGS: Bones/joints: . Slight marginal spurring. No erosive changes. No fracture or dislocation. No acute osseous or joint abnormality. Soft tissues: Normal. XR/XR knee RT 3V* [id number] IMPRESSION: No acute findings.
== END 2023-12-02 10:35 | disposition home or self-care (01) ==
PROVIDERS: PCP Nurse Practitioner Family; Visit Provider Family Medicine
DX: M25.561 Pain in right knee (principal)
CPT/HCPCS: 73562